=== PATIENT | male | born 1985 | race Caucasian/White ===

== ENCOUNTER → 2021-08-25 07:47 | Outpatient (CLI) | payer BC, SELFPAY ==
[2021-01-11 15:20] VITALS: BMI 32.4
--- NOTE | 2021-08-25 07:51 | ECHOD_ITS ---
Reason For Study: Arrhythmia Procedure This was a 2D Doppler, Color Flow transthoracic echocardiogram. Exam performed in department. Left Ventricle Normal LV size. Left ventricular systolic function is normal. The estimated ejection fraction is 60 %. No regional wall motion abnormalities noted. Right Ventricle Normal RV size. Normal systolic function. Atria Normal left atrium. Normal right atrium. Mitral Valve Normal mitral valve. Tricuspid Valve Normal tricuspid valve. Mild tricuspid valve insufficiency. Pulmonary artery systolic pressure is 26 mmHg. Aortic Valve Trisinus/trileaflet aortic valve. Pulmonic Valve Normal pulmonic valve. Great Vessels Normal aortic root. The pulmonary artery is normal size. Normal inferior vena cava. Pericardium/Pleural No pericardial effusion. MMode/2D Measurements & Calculations LVIDd: 5.1 cm IVSd: 1.1 cm Ao root diam: 3.4 cm LVIDs: 3.1 cm LVPWd: 1.0 cm RVDd: 3.7 cm FS: 39.2 % LAV(MOD-bp): 53.0 ml LVAd ap4: 40.9 cm2 LVAd ap2: 41.0 cm2 LAV(MOD-bp) Indexed: 22.6 ml/m2 LVLd ap4: 9.3 cm LVLd ap2: 9.4 cm LAV(MOD-sp2): 51.8 ml EDV(MOD-sp4): 150.9 ml EDV(MOD-sp2): 150.1 ml LAV(MOD-sp4): 50.8 ml EDV(sp4-el): 153.0 ml EDV(sp2-el): 151.1 ml LVAs ap4: 24.4 cm2 LVAs ap2: 24.5 cm2 LVLs ap4: 8.2 cm LVLs ap2: 8.1 cm ESV(MOD-sp4): 65.4 ml ESV(MOD-sp2): 63.0 ml ESV(sp4-el): 61.6 ml ESV(sp2-el): 62.8 ml EF(MOD-sp4): 56.7 % EF(MOD-sp2): 58.0 % EF(sp4-el): 59.7 % SV(MOD-sp4): 85.5 ml SV(MOD-sp2): 87.1 ml SV(sp4-el): 91.3 ml LA dimension(2D): 4.2 cm LA A4 area: 18.8 cm2 RA A4 area: 16.7 cm2 Doppler Measurements & Calculations MV E max herb: 102.9 cm/sec Lat Peak E' Herb: 14.7 cm/sec Med Peak E' Herb: 12.0 cm/sec MV A max herb: 51.5 cm/sec E/E' lat: 7.0 E/E' med: 8.6 MV E/A: 2.0 Ao V2 max: 162.9 cm/sec LV V1 max: 151.0 cm/sec PA V2 max: 134.6 cm/sec Ao max P.6 mmHg LV V1 max P.1 mmHg TR max herb: 231.9 cm/sec TR max P.5 mmHg ECHO/Echo Complete Interpretation Summary Normal LV size. Left ventricular systolic function is normal. The estimated ejection fraction is 60 %. Structurally normal valves. Ordering Physician: Jimbo Stone Referring Physician: Braden Flynn Performed By: Mervat Oneil RDCS
== END ==
PROVIDERS: PCP Family Medicine; Referring Provider Internal Medicine Cardiovascular Disease; Visit Provider Internal Medicine Cardiovascular Disease
DX: R00.2 Palpitations (principal)
CPT/HCPCS: 93306